=== PATIENT | male | born 1995 | race Caucasian/White ===

== ENCOUNTER 2017-11-03 13:12 | Day surgery (SDC) | payer OTHER ==
[2017-11-04] MEDS ORDERED: PROPOFOL 60 ML (17:29)
== END 2017-11-03 16:17 | disposition home or self-care (01) ==
LOC: GIL 13:12
DX: K64.8 Other hemorrhoids (principal); J45.909 Unspecified asthma, uncomplicated
CPT/HCPCS: 45380; 88305